=== PATIENT | male | born 1980 ===

== ENCOUNTER 2018-11-28 12:25 | Outpatient (CLI) | payer BC ==
--- NOTE | 2018-11-28 13:06 | CT ---
CT paranasal sinuses noncontrast: DATE: 11/28/2018 HISTORY: 38-year-old male with nasal polyps and nasal congestion. COMPARISON: None FINDINGS: The frontal, sphenoid, right maxillary, and right ethmoid, sinuses, are clear. There is opacification of one of the left ethmoid air cells at mid level. The rest of the left ethmoid air cells are clear. Mild left mid nasal septal deviation to left with spur that indents the upper portion of left inferior meatus. More prominent right anterior inferior nasal septal deviation to the right displacing the right inferior turbinate. The rest of the nasal cavity is clear. There is a moderate s ized mucus retention cyst at the floor of the left maxillary sinus. The rest of the left maxillary sinus is clear. Bilateral ostiomeatal units and sphenoethmoidal recesses, are clear. No air-fluid lev els. IMPRESSION: 1. Mucus retention cyst at the floor of left maxillary sinus. 2. Opacification of one of the left ethmoid air cells. 3. Otherwise, the rest of the paranasal sinuses are clear. 4. Nasal septal deviations with spurs. No nasal polyps.
== END 2018-11-28 12:26 | disposition home or self-care (01) ==
LOC: BICCT 12:25
PROVIDERS: ATTEND Allergy & Immunology
DX: J33.9 Nasal polyp, unspecified (principal); J34.2 Deviated nasal septum; J34.1 Cyst and mucocele of nose and nasal sinus; J34.89 Other specified disorders of nose and nasal sinuses